=== PATIENT | male | born 1975 | race Caucasian/White ===

== ENCOUNTER 2018-05-05 15:21 | Outpatient (CLI) | payer OTHER, SELFPAY ==
--- NOTE | 2018-05-05 15:12 | DI.RAD_ITS ---
SYMPTOMS/DIAGNOSIS: SHOULDER PAIN RIGHT SHOULDER: Three views. No acute fracture or dislocation is seen. The glenohumeral joint appears well maintained. No suspicious lytic or sclerotic lesions are seen. The soft tissues are unremarkable. IMPRESSION: No acute abnormality.
== END 2018-05-05 15:41 ==
PROVIDERS: PCP Nurse Practitioner Family; Visit Provider Physician Assistant Surgical
DX: M25.511 Pain in right shoulder (principal)
CPT/HCPCS: 73030

== ENCOUNTER 2018-09-09 00:44 | Outpatient (CLI) | payer OTHER, SELFPAY ==
--- NOTE | 2018-09-09 14:44 | DI.MRI_ITS ---
SYMPTOM/DIAGNOSIS: RT SHOULDER PAIN, RT ROTATOR CUFF TENDONITIS, M75.81, M25.511 RIGHT SHOULDER MRI: MRI examination of the shoulder was performed according to the usual protocol. There is an apparent small humeral head cyst. No other significant bony signal abnormality is seen involving the humeral head or glenoid. There are signal changes in acromion and clavicle adjacent to the acromioclavicular joint and there are associated hypertrophic changes at the AC joint with a small quantity of fluid present in the joint. There is mild impingement on the superior aspect of the supraspinatus myotendinous junction. No rotator cuff tear is seen. No gross labral tear identified by noncontrast criteria. The biceps tendon and anchor appear intact. CONCLUSION: Hypertrophic degenerative changes of the AC joint with mild supraspinatus myotendinous junction impingement. No rotator cuff tear or significant tendinosis identified.
== END 2018-09-09 01:04 ==
PROVIDERS: PCP Nurse Practitioner Family; Visit Provider Student in an Organized Health Care Education/Training Program
DX: M25.511 Pain in right shoulder (principal); M75.81 Other shoulder lesions, right shoulder; M19.011 Primary osteoarthritis, right shoulder
CPT/HCPCS: 73221

== ENCOUNTER 2018-10-03 07:59 | Outpatient (CLI) | payer OTHER, SELFPAY ==
--- NOTE | 2018-10-03 17:07 | W.PREOPHP ---
Documented by User: CHRIS Espitia 10/03/18 17:17 Date of service: 10/03/18 Assessment and Plan (1) Right rotator cuff tendonitis: Current visit: No Status: Chronic Right shoulder arthroscopy. Details of surgery were discussed with patient as well as risks and pertinent anatomy. All questions were answered. (2) Arthralgia of right acromioclavicular joint: Current visit: No Status: Chronic Distal clavicle excision. Details of surgery were discussed with patient as well as risks and pertinent anatomy. All questions were answered. History of Present Illness Chief Complaint: Right shoulder pain Narrative: Catrachito is a 43-year-old male who comes in today for preop visit for his right shoulder. He has been dealing with right shoulder pain for multiple years now, but over the last few months it has gotten significantly worse. He states that whenever he tries to do any lifting especially up over his head he gets significant pain on the top of the shoulder. He also has trouble sleeping on his right side because of his right shoulder pain. He was previously injected in the AC joint of his right shoulder, and this gave him significant relief of his shoulder pain, but not absolute relief from his pain. This ultimately led to him getting an MRI which revealed no significant rotator cuff damage or tearing. Because he continues to have pain after this injection, he would like to move forward with a distal clavicle excision and right shoulder arthroscopy. The reason for the arthroscopy is because he did not have absolute relief from the shoulder pain with the AC injection. Hopefully this will just be a debridement and decompression of the shoulder, and we will not find any other pathology in his right shoulder. Pertinent Surgical Information Patient denies history of hypertension, CVA, [place], angina, asthma, COPD, renal or liver disorders, hepatitis, bleeding disorders, diabetes, immune or thyroid disorders. Catrachito states that he usually wakes up from anesthesia with some postop nausea and vomiting. Review of Systems Constitutional Denies fever(s) ENT Denies dizziness and Denies sore throat Cardiovascular Denies chest pain, Denies palpitations and Denies dyspnea Respiratory Denies cough and Denies dyspnea Gastrointestinal Denies abdominal pain, Denies melena, Denies hematochezia, Denies diarrhea, Denies nausea and Denies vomiting Genitourinary Denies hematuria and Denies dysuria Neurologic Denies dizziness Endocrine Denies palpitations [facility] Medical History Migraine (Chronic) Surgical History Fracture of tibia, left, closed (Chronic) H/O arthroscopy of left knee (Chronic) Status post excision of lipoma (Chronic) Social History Smoking and Tabacco status: Former Tobacco Use Meds Home Medications Medication Instructions Recorded Confirmed Type amitriptyline 50 mg PO HS tab-cap 07/21/14 10/03/18 History rizatriptan [Maxalt] 10 mg PO PRN 07/21/14 10/03/18 History Aristocort TOPICAL BID 05/31/15 09/03/18 History ibuprofen 600 mg PO Q6H PRN #20 tab 01/12/18 10/03/18 Rx Allergies Allergy/AdvReac Type Severity Reaction Status Date / Time morphine Allergy Severe difficulty Unverified 10/03/18 08:13 breathing, red streaks, itching Exam HENSC Head: normocephalic and atraumatic General nose exam: no nasal discharge Throat: uvula midline and no uvular edema Other: soft palate rises symmetrically, no erythema Eyes Conjunctivae: conjunctivae normal Sclera: sclerae normal Pupils: PERRL Resp Effort & Inspection: normal respiratory effort Auscultation: clear to auscultation bilaterally and no wheezes Cardio Rate: regular rate Rhythm: regular rhythm Heart Sounds: S1 normal, S2 normal and no murmurs Documented by User: Michael Lutz MD 10/05/18 19:09 [facility] Medical History Migraine (Chronic) Surgical History Fracture of tibia, left, closed (Chronic) H/O arthroscopy of left knee (Chronic) Status post excision of lipoma (Chronic) Social History Smoking and Tabacco status: Former Tobacco Use Meds Home Medications Medication Instructions Recorded Confirmed Type amitriptyline 50 mg PO HS tab-cap 07/21/14 10/03/18 History rizatriptan [Maxalt] 10 mg PO PRN 07/21/14 10/03/18 History Aristocort TOPICAL BID 05/31/15 09/03/18 History ibuprofen 600 mg PO Q6H PRN #20 tab 01/12/18 10/03/18 Rx Allergies Allergy/AdvReac Type Severity Reaction Status Date / Time morphine Allergy Severe difficulty Unverified 10/03/18 08:13 breathing, red streaks, itching
--- NOTE | 2018-10-03 17:17 | HPE_ITS ---
Documented by User: CHRIS Espitia 10/03/18 17:17 Date of service: 10/03/18 Assessment and Plan (1) Right rotator cuff tendonitis: Current visit: No Status: Chronic Right shoulder arthroscopy. Details of surgery were discussed with patient as well as risks and pertinent anatomy. All questions were answered. (2) Arthralgia of right acromioclavicular joint: Current visit: No Status: Chronic Distal clavicle excision. Details of surgery were discussed with patient as well as risks and pertinent anatomy. All questions were answered. History of Present Illness Chief Complaint: Right shoulder pain Narrative: Catrachito is a 43-year-old male who comes in today for preop visit for his right shoulder. He has been dealing with right shoulder pain for multiple years now, but over the last few months it has gotten significantly worse. He states that whenever he tries to do any lifting especially up over his head he gets significant pain on the top of the shoulder. He also has trouble sleeping on his right side because of his right shoulder pain. He was previously injected in the AC joint of his right shoulder, and this gave him significant relief of his shoulder pain, but not absolute relief from his pain. This ultimately led to him getting an MRI which revealed no significant rotator cuff damage or tearing. Because he continues to have pain after this injection, he would like to move forward with a distal clavicle excision and right shoulder arthroscopy. The reason for the arthroscopy is because he did not have absolute relief from the shoulder pain with the AC injection. Hopefully this will just be a debridement and decompression of the shoulder, and we will not find any other pathology in his right shoulder. Pertinent Surgical Information Patient denies history of hypertension, CVA, [place], angina, asthma, COPD, renal or liver disorders, hepatitis, bleeding disorders, diabetes, immune or thyroid disorders. Catrachito states that he usually wakes up from anesthesia with some postop nausea and vomiting. Review of Systems Constitutional Denies fever(s) ENT Denies dizziness and Denies sore throat Cardiovascular Denies chest pain, Denies palpitations and Denies dyspnea Respiratory Denies cough and Denies dyspnea Gastrointestinal Denies abdominal pain, Denies melena, Denies hematochezia, Denies diarrhea, Denies nausea and Denies vomiting Genitourinary Denies hematuria and Denies dysuria Neurologic Denies dizziness Endocrine Denies palpitations [facility] Medical History Migraine (Chronic) Surgical History Fracture of tibia, left, closed (Chronic) H/O arthroscopy of left knee (Chronic) Status post excision of lipoma (Chronic) Social History Smoking and Tabacco status: Former Tobacco Use Meds Home Medications Medication Instructions Recorded Confirmed Type amitriptyline 50 mg PO HS tab-cap 07/21/14 10/03/18 History rizatriptan [Maxalt] 10 mg PO PRN 07/21/14 10/03/18 History Aristocort TOPICAL BID 05/31/15 09/03/18 History ibuprofen 600 mg PO Q6H PRN #20 tab 01/12/18 10/03/18 Rx Allergies Allergy/AdvReac Type Severity Reaction Status Date / Time morphine Allergy Severe difficulty Unverified 10/03/18 08:13 breathing, red streaks, itching Exam HENIN Head: normocephalic and atraumatic General nose exam: no nasal discharge Throat: uvula midline and no uvular edema Other: soft palate rises symmetrically, no erythema Eyes Conjunctivae: conjunctivae normal Sclera: sclerae normal Pupils: PERRL Resp Effort & Inspection: normal respiratory effort Auscultation: clear to auscultation bilaterally and no wheezes Cardio Rate: regular rate Rhythm: regular rhythm Heart Sounds: S1 normal, S2 normal and no murmurs Documented by User: Michael Lutz MD 10/05/18 19:09 [facility] Medical History Migraine (Chronic) Surgical History Fracture of tibia, left, closed (Chronic) H/O arthroscopy of left knee (Chronic) Status post excision of lipoma (Chronic) Social History Smoking and Tabacco status: Former Tobacco Use Meds Home Medications Medication Instructions Recorded Confirmed Type amitriptyline 50 mg PO HS tab-cap 07/21/14 10/03/18 History rizatriptan [Maxalt] 10 mg PO PRN 07/21/14 10/03/18 History Aristocort TOPICAL BID 05/31/15 09/03/18 History ibuprofen 600 mg PO Q6H PRN #20 tab 01/12/18 10/03/18 Rx Allergies Allergy/AdvReac Type Severity Reaction Status Date / Time morphine Allergy Severe difficulty Unverified 10/03/18 08:13 breathing, red streaks, itching
== END 2018-10-03 08:19 ==
PROVIDERS: PCP Nurse Practitioner Family; Visit Provider Student in an Organized Health Care Education/Training Program
DX: M25.511 Pain in right shoulder (principal); M19.011 Primary osteoarthritis, right shoulder; M75.101 Unspecified rotator cuff tear or rupture of right shoulder, not specified as traumatic; Z01.818 Encounter for other preprocedural examination
CPT/HCPCS: NC

== ENCOUNTER 2018-10-07 11:11 | Day surgery (SDC) | payer OTHER, SELFPAY ==
[2018-10-03 08:14] VITALS: BP 145/87; PULSE 94; RESP 18; TEMP 37; O2SAT 98
[2018-10-07] VITALS (7 sets, daily range): BP systolic 79–138; BP diastolic 38–97; PULSE 64–84; RESP 16–24; TEMP 35.2–36.8; O2SAT 95–99
[2018-10-07] MEDS: Lactated Ringers 1,000 ML 80 ML IV ×2 (12:24→16:57)
[2018-10-07] MEDS: Bupivacaine 0.5% Pres-Free 30 ML VIAL (15:20)
[2018-10-07] MEDS: Bupivacaine LIPOSOME/PF 133 MG/10 ML VIAL IJ (15:20)
--- NOTE | 2018-10-07 17:01 | PDOC.DSDIS_ITS ---
Discharge Plan Disposition Patient Disposition: HOME Condition: Good Discharge Details Reason For Visit: R AC Arthritis Attending Provider: Michael Lutz Primary Care Provider: Elva Hill Home Meds and New Rx's Prescriptions: New acetaminophen 500 mg tablet 1,000 mg PO Q8H PRN (Reason: pain) Qty: 90 RF: 3 oxycodone 5 mg tablet 5 mg PO Q4H Qty: 15 RF: 0 Continued rizatriptan [Maxalt] 10 MG tablet 10 mg PO PRN RF: 0 amitriptyline 50 MG tablet 50 mg PO HS RF: 0 ibuprofen 600 MG tablet 600 mg PO Q6H PRN (Reason: Pain) Qty: 90 RF: 3 Discontinued Aristocort cream Topical BID RF: 0 No Action Excedrin Extra Strength 250-250-65 mg Tablet 2 tab PO Q6H PRNRF: 0 Discharge Instructions Stand Alone Forms: Nelda Shoulder Arthro Referrals: Michael Lutz MD [ [facility] STAFF PHYSICIAN] - Equipment/Supplies: Sling Activity:: Activity as Tolerated Remove Dressings/Wound Care:: 72 hours Shower/Bathe:: 72 hours Diet:: As Tolerated Discharge Orders Discharge Orders: Discharge Order (Routine); Ordered 10/07/18 Ordered By: Michael Lutz DS: Diagnosis Discharge Diagnosis (1) Arthralgia of right acromioclavicular joint: Status: Chronic (2) Right rotator cuff tendonitis: Status: Chronic
[2018-10-07] MEDS: fentaNYL 100 MCG/2 ML VIAL IVP ×2 (17:35→17:40)
[2018-10-07] MEDS: oxyCODONE 5 MG TAB PO (18:15)
--- NOTE | 2018-10-07 21:54 | W.PM.OP ---
Date of service: 10/07/18 Time of Service: 16:54 Operative Note DATE OF PROCEDURE: 10/07/18 PRE-OP DIAGNOSIS: Right AC arthritis, right subacromial impingement POST-OP DIAGNOSIS: same PROCEDURE: - Mini-Open Distal Clavicle Excision - Subacromial Debridement with Acromioplasty SURGEON: Michael Lutz COMMERCIAL LOAN COORDINATOR: Ash Frye ANESTHESIA: GETA and regional ESTIMATED BLOOD LOSS: 0 PATHOLOGY: none sent COMPLICATIONS: None Patient was transported to: PACU Patient's condition: stable Indications: I have seen Catrachito in clinic for a painful shoulder. Pathology was confirmed based on x-ray, MRI, and exam findings. Nonoperative measures were exhausted but disability and pain persisted. I discussed shoulder arthroscopy and procedures. I reviewed the risks of the procedures to include, but not limited to, bleeding, infection, pain, stiffness, damage to nerves or vessels, recurrence, hardware failure, blood clot. Despite these risks, the patient elected to proceed. Findings: There were signs of arthrosis of the distal clavicle; a 1cm wedge was resected A diagnostic arthroscopy was performed with the following findings: - Glenohumeral Joint: No significant arthritic changes is - Labrum: A very mild amount of inflammation but no tearing - Cuff: No articular nor bursal sided tear - Biceps: Biceps tendon without tearing and anchor intact - Subacromial: Some thickened bursa with a downward sloping anterolateral spur Procedure Description: Bernabe was greeted in the preoperative holding area where the correct side was identified and marked. The consent was reviewed with the patient and signed. The history and physical was updated. All questions were answered. Catrachito was taken back to the PACU for administration of an intrascalene nerve block. He was then taken to the operating room. The patient was placed into the supine position on the operating room table. A general anesthetic was administered. He was then positioned in the beach chair position. All bony prominences were well padded. The head was placed in a foam head still operator in a neutral position. Prophylactic antibiotics in the form of cefazolin were administered. The right arm/shoulder was then prepped with Chloraprep and draped in a standard fashion with stockinette and shoulder drape. A timeout to confirm correct identity, side and site, procedure, allergies, anesthesia, and medical concerns was performed. The arm was placed into a pneumatic velasquez, [id number]. The distal clavicle excision was started first. An approximate 2-1/2 cm incision was made overlying the AC joint. The skin was incised sharply. The deeper tissues were dissected with electrocautery to expose the clavipectoral fascia. The clavipectoral fascia was incised longitudinally along the distal clavicle and onto the acromion. The fascia was elevated in subperiosteal fashion. The end of the clavicle was exposed. This showed significant irregularity of the distal clavicle. Using a small oscillating saw, a 1 cm resection of the distal clavicle was performed. This was removed. The wound was inspected for any bony fragments remaining. A rasp was used to smooth the edges, especially posteriorly. The wound was then thoroughly irrigated. A small amount of bone wax was placed at the end of the clavicle. The clavipectoral fascia was reapproximated with 0 Vicryl. The deep tissues and dermal layer was closed with a 2-0 Vicryl. The shoulder arthroscopy was then performed. The glenohumeral joint was injected with 20 cc of normal saline with good flow back. A standard posterior portal was made and the joint was entered atraumatically with a blunt arthroscope. Once inside we had good visualization of the structures of the glenohumeral joint. An anterior portal was established with spinal needle localization. A 6.5 mm cannula was inserted. A probe was then used to perform a diagnostic arthroscopy. There is noted to be no significant cartilage damage of the glenoid humeral joint. The labrum was intact anteriorly and posteriorly. There were no loose bodies in the inferior pouch. The superior rotator cuff was attached to the tuberosity. The biceps tendon was without tearing. The subscapularis was intact. The arthroscope was then inserted into the subacromial space. The 6.5 mm cannula was placed lateral to the CA ligament. Given that there was no significant tearing of the rotator cuff I went ahead and release the CA ligament off the anterolateral corner of the acromion. A complete bursectomy is performed anteriorly, posteriorly, and laterally with electrocautery and shaver. This had excellent exposure of the rotator cuff. The bursal side rotator cuff was without any significant tearing that was appreciated. There was a large anterolateral spur. Using a spinal needle a lateral portal was established. This became the viewing portal. A 5.0 mm philip was then inserted from the posterior portal. The anterolateral corner of the acromion was then resected in plane with the posterior slope of the acromion. The scope equipment was removed from the shoulder. Excess fluid was evacuated. The portal sites were closed with 3-0 Monocryl. The wounds were dressed with Steri-Strips, 4 x 4's, ABDs, Medipore tape. A sling was applied. The patient tolerated the procedure well and was returned to the Same Day Surgery area in a stable condition suffering no known complication.
== END 2018-10-07 19:14 | disposition home or self-care (01) ==
PROVIDERS: PCP Nurse Practitioner Family; Visit Provider Student in an Organized Health Care Education/Training Program
PROC: (CPT 29805; principal; 2018-10-07 13:30)
PROC: (CPT 23120; 2018-10-07 13:30)
DX: M19.011 Primary osteoarthritis, right shoulder (principal); M75.41 Impingement syndrome of right shoulder
CPT/HCPCS: 29823; 23120; 76942; J0690; J1100; J1885; J2250; J2405; J3010; L3650

== ENCOUNTER 2019-02-20 12:12 | Emergency (ER) | payer OTHER, SELFPAY ==
[2019-02-20 12:17] VITALS: BP 147/96; PULSE 98; RESP 18; TEMP 36.7; O2SAT 101
[2019-02-20 12:32] LABS: Bilirubin Negative (Negative); Blood Trace-intact (Negative); Clarity Clear (Clear); Glucose Negative (Negative); Ketones Negative (Negative); Leukocyte Esterase Negative (Negative); Nitrite Negative (Negative); Specific Gravity >= 1.030 (1.005-1.025); Urobilinogen 0.2 EU/dL (Up TO 0.2)
--- NOTE | 2019-02-20 12:41 | DI.CT_ITS ---
SYMPTOMS/DIAGNOSIS: LEFT FLANK PAIN TO GROIN RENAL COLIC CT: Routine examination was performed. There is a 3 mm stone seen in the left urinary bladder. It may lie within the wall in the region of the ureterovesical junction or within the bladder lumen. There is mild dilatation of the left renal collecting system. There are bilateral nonobstructing stones in the kidneys. No evidence of obstruction of the right kidney. The unenhanced visualized portions of the liver, spleen, pancreas, gallbladder, bile ducts and adrenal glands are unremarkable. The aorta is of normal caliber. The bowel shows no evidence of obstruction or inflammation. There is colonic diverticulosis present, but no evidence of diverticulitis. There is a normal appendix present. Mild degenerative changes are seen in the spine. IMPRESSION: 1. A 3 mm calculus in the left urinary bladder. It appears to lie within the wall at the level of the left ureterovesical junction. There is mild hydronephrosis present. 2. Bilateral nephrolithiasis. The findings were discussed with Dr. Ahumada of the Emergency Department on the date of the examination.
[2019-02-20 12:43] LABS: Epithelial Cells Few HPF (Negative); RBC 0-2 (0-2); WBC 0-2 HPF (0-5)
[2019-02-20 12:44] LABS: Bacteria Few HPF (Negative); C & S Indicated? No; Casts Negative LPF (Negative); Crystals Negative HPF (Negative); Mucus Moderate (Negative)
[2019-02-20] MEDS: Ketorolac 30 MG/ML VIAL IVP (12:48)
--- NOTE | 2019-02-20 12:49 | NUR.NOTE ---
pt medicated as per mdo Nursing Note:
--- NOTE | 2019-02-20 13:13 | ED.GENADUL_ITS ---
Discharge Plan Disposition Patient Disposition: HOME Discharge Details Chief Complaint: FlankPain Clinical Impression: Renal colic on left side Primary Care Provider: Elva Hill ED Provider: Moi Ahumada Home Meds and New Rx's Prescriptions: New tamsulosin [Flomax] 0.4 mg capsule 0.4 mg PO DAILY Qty: 7 RF: 0 Continued rizatriptan [Maxalt] 10 MG tablet 10 mg PO PRN RF: 0 amitriptyline 50 MG tablet 50 mg PO HS RF: 0 Excedrin Extra Strength 250-250-65 mg Tablet 2 tab PO Q6H PRNRF: 0 acetaminophen 500 mg tablet 1,000 mg PO Q8H PRN (Reason: pain) Qty: 90 RF: 3 ibuprofen 600 MG tablet 600 mg PO Q6H PRN (Reason: Pain) Qty: 90 RF: 3 Discharge Instructions Instructions: Renal Colic (ED) Additional Instructions: Please drink plenty of fluid. Please contact your primary care physician to arrange follow-up. Return to the ER for any worsening or new concerning symptoms. Referrals: Elva Hill [Primary Care Provider] - Discharge Data Discharge Date/Time-TO BE ENTERED AT DEPARTURE: 02/20/19 13:50 Medical Decision Making 43-year-old male with history of renal stones here with left flank pain that started this morning. Patient is quite uncomfortable. Tachycardic. Toradol 30 mg IV for pain. Zofran 4 mg IV for nausea. We will give IV fluid. Urinalysis reviewed and trace blood. 0-[address] of the abdomen and pelvis interpreted by radiology: 3 mm ureteral calculus at UVJ with mild hydronephrosis. Plan for outpatient follow-up. Disposition decision was made weighing the risks and benefits of hospitalization versus outpatient treatment, the risk for further decompensation, and the patient's wishes. The patient was stable and requested discharge. Prior to discharge, my usual and customary return precautions were reviewed with the patient - this included follow-up instructions and reason to return to the emergency department if condition worsens, does not improve as expected, or other new concerns arise. HPI General Mode of arrival: ambulatory . Date/Time Provider Initiated Documentation: 02/20/19 12:41 . Limitations to Documentation: no limitations . Information obtained by: patient . HPI Narrative: 43-year-old male presents with chief complaint of left flank pain. Patient notes the pain started in his left posterior flank this morning around 7 AM. Pain is migrated to now more anterior and lower left flank and groin. Pain radiates to his left testicle. He has no associated abdominal pain. He does have associated nausea. Pain is severe and rated 10/10. Pain is described as sharp. Patient does have a history of renal stones and current pain does not feel the same as prior stones. Last stone was passed remotely. He has no associated fever, dysuria, or hematuria. Related Data Home Medications Medication Instructions Recorded Confirmed amitriptyline 50 mg PO HS tab-cap 07/21/14 02/20/19 rizatriptan [Maxalt] 10 mg PO PRN 07/21/14 02/20/19 Excedrin Extra Strength 2 tab PO Q6H PRN 10/07/18 02/20/19 acetaminophen 1,000 mg PO Q8H PRN #90 tab 10/07/18 02/20/19 ibuprofen 600 mg PO Q6H PRN #90 tab 10/07/18 02/20/19 tamsulosin [Flomax] 0.4 mg PO DAILY #7 cap 02/20/19 Previous Rx's Medication Instructions Recorded acetaminophen 1,000 mg PO Q8H PRN #90 tab 10/07/18 ibuprofen 600 mg PO Q6H PRN #90 tab 10/07/18 tamsulosin [Flomax] 0.4 mg PO DAILY #7 cap 02/20/19 Allergies Allergy/AdvReac Type Severity Reaction Status Date / Time morphine Allergy Severe difficulty Unverified 02/20/19 12:18 breathing, red streaks, itching General Stated Complaint: FlankPain MELISSA: 3 Review of Systems Review of Systems All systems reviewed & are unremarkable except as noted in HPI and below Constitutional Denies fever(s) Genitourinary Reports as per HPI PFSH Medical History Migraine (Chronic) Surgical History Fracture of tibia, left, closed (Chronic) H/O arthroscopy of left knee (Chronic) Status post excision of lipoma (Chronic) Social History Smoking/Tobacco Use Status: Former Tobacco Use Drug use: Never Do you feel safe at home: Yes Do you feel safe in your relationship?: Yes Exam Const General: cooperative and no acute distress HENMT Mouth: moist mucous membranes Eyes Conjunctivae: normal conjunctivae Sclera: normal sclerae Neck Neck: trachea midline and supple Resp Auscultation: clear to auscultation bilaterally, no rales, no rhonchi and no wheezes Cardio Jugular venous pressure: no JVD Rate: regular rate and not tachycardic Rhythm: regular rhythm GI Palpation: soft, not firm, no guarding, no masses, not rigid and nontender Male General Exam: No hernia Penis: normal penis Scrotum: scrotum normal Testes: normal Back/Spine/Pelvis Back: CVA tenderness (left) Skin General skin exam: no rashes or lesions noted Neuro General: alert, awake and tone normal Extrem General: no calf tenderness bilaterally and no edema Psych Appearance: grossly normal Mental Status: mental status grossly normal Speech and Movement: speech and movement normal Course Vital Signs Temperature 36.7 C 02/20/19 12:17 Pulse 98 H 02/20/19 12:17 Respiratory Rate 18 02/20/19 12:17 Blood Pressure 147/96 H 02/20/19 12:17 Pulse Oximetry 101 H 02/20/19 12:17 Temperature 36.7 C 02/20/19 12:17 Pulse 98 H 02/20/19 12:17 Respiratory Rate 18 02/20/19 12:17 Respiratory Effort 02/20/19 12:20 Blood Pressure 147/96 H 02/20/19 12:17 Blood Pressure Position Supine 02/20/19 12:17 Pulse Oximetry 101 H 02/20/19 12:17 Oxygen Delivery Method Room Air 02/20/19 12:17 Oxygen Flow Rate 0 02/20/19 12:17 Pain Level 10 02/20/19 12:17 Lab/Test Results Lab/Test Results: Laboratory Tests Range/Units 02/20/19 12:25 Urine Color (Yellow) Yellow Urine Clarity (Clear) Clear Urine pH (5-8) 6.0 Ur Specific Allen (1.005-1.025) >= 1.030 H Urine Protein (Negative) mg/dL Negative Urine Ketones (Negative) mg/dL Negative Urine Blood (Negative) Trace-intact H Urine Nitrite (Negative) Negative Urine Bilirubin (Negative) Negative Urine Urobilinogen (Up TO 0.2) EU/dL 0.2 Ur Leukocyte Esterase (Negative) Negative Urine RBC (0-2) 0-2 Urine WBC (0-5) HPF 0-2 Ur Epithelial Cells (Negative) HPF Few Urine Crystals (Negative) HPF Negative Urine Bacteria (Negative) HPF Few Urine Casts (Negative) LPF Negative Urine Mucus (Negative) Moderate Ur Culture Indicated? No Urine Glucose (Negative) mg/dL Negative
[2019-02-20] MEDS: Tamsulosin 0.4 MG CAPCR PO (13:31)
[2019-02-20] MEDS: Ondansetron 4 MG/2 ML VIAL IVP (13:31)
--- NOTE | 2019-02-20 13:36 | NUR.NOTE ---
pt medicated as per mdo tolorating po intake provided with bedside urinal and strainer Nursing Note:
[2019-02-20 13:49] VITALS: BP 134/78; PULSE 87; RESP 18; TEMP 36.8; O2SAT 98
== END 2019-02-20 13:50 | disposition home or self-care (01) ==
PROVIDERS: Emergency Provider Student in an Organized Health Care Education/Training Program; PCP Nurse Practitioner Family
DX: N13.0 Hydronephrosis with ureteropelvic junction obstruction (principal); N23 Unspecified renal colic; R00.0 Tachycardia, unspecified; R31.9 Hematuria, unspecified; Z87.440 Personal history of urinary (tract) infections
CPT/HCPCS: 36415; 99284; 74176; 81003; 81015; J1885; J2405

== ENCOUNTER 2020-07-14 21:37 | Outpatient (REF) | payer OTHER, SELFPAY ==
[2020-07-14 21:46] LABS: Calculated LDL 189 mg/dL (<100); Cholesterol 260 mg/dL (<200); HDL Cholesterol 46 mg/dL (40-60); Triglyceride 127 mg/dL (<150)
[2020-07-18 09:53] LABS: HIV-1/2 Ag & Ab Screen Negative (Negative)
[2020-07-18 10:04] LABS: Hepatitis C Ab w Rflx HCV PCR Negative (Negative)
== END 2020-07-14 21:57 ==
LOC: NCHCN 21:37
PROVIDERS: PCP Nurse Practitioner Family; Visit Provider Nurse Practitioner Family
DX: Z00.00 Encounter for general adult medical examination without abnormal findings (principal); K30 Functional dyspepsia; N23 Unspecified renal colic; G47.62 Sleep related leg cramps; Z13.220 Encounter for screening for lipoid disorders; Z11.4 Encounter for screening for human immunodeficiency virus [HIV]; Z11.59 Encounter for screening for other viral diseases
CPT/HCPCS: 80061; 86803; 87389

== ENCOUNTER 2021-03-10 03:48 | Outpatient (CLI) | payer OTHER, SELFPAY ==
--- NOTE | 2021-03-10 08:00 | DI.MRI_ITS ---
Exam(s) MR LOWER JOINT LT WO EXAM: MR LOWER JOINT LT WO CLINICAL HISTORY: PAIN,ACHILLES TENONOSIS,TENDINITIS,M76.62,M67.88 TECHNIQUE: Multiplanar multisequence MRI was performed without intravenous contrast. COMPARISON: CR LEFT FEMUR from 03/26/2011 CR LEFT TIB/FIB from 03/26/2011 CR LEFT FEMUR from 03/26/2011 CR LEFT TIB/FIB from 03/26/2011 FINDINGS: BONES/JOINTS: No fracture or contusion pattern. No bone lesions identified. The talar dome is smooth. The ankle mortise is maintained. No joint effusion is present. There is metallic artifact in the dis audelia tibia from the patient's intramedullary jackie. LIGAMENTS: The tibiofibular and calcaneofibular ligaments are intact. The talofibular ligaments are i ntact. The deltoid ligament is intact. The syndesmosis is unremarkable. Sinus tarsi is normal. MUSCULOTENDINOUS STRUCTURES: Achilles tendon: There is fusiform thickening of the Achilles tendon centered 7 cm above its attachme nt onto the calcaneus. There is hyperintense signal seen on the T2 weighted images in this area. Plantar fascia: Unremarkable. Anterior Extensor tendons: Unremarkable. Posterior Tibialis: Unremarkable. Flexor Digitorum longus: Unremarkable. Flexor Hallucis longus: Unremarkable. Peroneus longus: Unremarkable. Peroneus brevis:Unremarkable. SOFT TISSUES: Unremarkable. OTHER FINDINGS: None. IMPRESSION: Partial tear of the Achilles tendon. DATA REPOSITORY:
== END 2021-03-10 04:08 ==
PROVIDERS: PCP Nurse Practitioner Family; Visit Provider Student in an Organized Health Care Education/Training Program
DX: M67.88 Other specified disorders of synovium and tendon, other site (principal); M76.62 Achilles tendinitis, left leg; S86.012A Strain of left Achilles tendon, initial encounter; X58.XXXA Exposure to other specified factors, initial encounter
CPT/HCPCS: 73721

== ENCOUNTER 2022-07-18 09:30 | Outpatient (REF) | payer OTHER, SELFPAY ==
[2022-07-18 14:45] LABS: Calculated LDL 187 mg/dL (<100); Cholesterol 255 mg/dL (<200); HDL Cholesterol 51 mg/dL (40-60); Triglyceride 88 mg/dL (<150)
== END 2022-07-18 09:31 | disposition home or self-care (01) ==
LOC: NCHCN 09:30
PROVIDERS: PCP Nurse Practitioner Family; Visit Provider Nurse Practitioner Family
DX: R03.0 Elevated blood-pressure reading, without diagnosis of hypertension (principal); E78.5 Hyperlipidemia, unspecified; Z00.00 Encounter for general adult medical examination without abnormal findings
CPT/HCPCS: 80061

== ENCOUNTER 2023-08-13 17:05 | Outpatient (REF) | payer OTHER, SELFPAY ==
[2023-08-13 22:00] LABS: ALT 36 U/L (16-63); AST 27 U/L (15-37); Alkaline Phosphatase 68 U/L (46-116); Anion Gap 5.5 mmol/L (3-11); BUN 21 mg/dL (7-18); Bilirubin, Total 0.4 mg/dL (0.2-1.0); CO2 30.5 mmol/L (21.0-32.0); CREATININE 0.8 mg/dL (0.70-1.30); Calcium 9.3 mg/dL (8.5-10.1); Calculated LDL 129 mg/dL (<100); Chloride 103 mmol/L (98-107); Cholesterol 213 mg/dL (<200); Estimated GFR 109.17 (mL/min/1.73m2); Glucose 84 mg/dL (74-106); HDL Cholesterol 42 mg/dL (40-60); Potassium 5.4 mmol/L (3.5-5.1); Sodium 139 mmol/L (136-145); Total Protein 7.5 g/dL (6.4-8.2); Triglyceride 213 mg/dL (<150)
== END 2023-08-13 17:06 | disposition home or self-care (01) ==
LOC: NCHCN 17:05
PROVIDERS: PCP Nurse Practitioner Family; Visit Provider Nurse Practitioner Family
DX: E78.5 Hyperlipidemia, unspecified (principal)
CPT/HCPCS: 80053; 80061

== ENCOUNTER 2023-08-27 15:28 | Outpatient (REF) | payer OTHER, SELFPAY ==
[2023-08-27 21:36] LABS: Anion Gap 2.1 mmol/L (3-11); BUN 19 mg/dL (7-18); CO2 31.9 mmol/L (21.0-32.0); Calcium 9.2 mg/dL (8.5-10.1); Chloride 106 mmol/L (98-107); Estimated GFR 92.84 (mL/min/1.73m2); Glucose 120 mg/dL (74-106); Potassium 4.4 mmol/L (3.5-5.1); Sodium 140 mmol/L (136-145)
== END 2023-08-27 15:29 | disposition home or self-care (01) ==
LOC: NCHCN 15:28
PROVIDERS: PCP Nurse Practitioner Family; Visit Provider Nurse Practitioner Family
DX: E87.5 Hyperkalemia (principal)
CPT/HCPCS: 80048

== ENCOUNTER 2025-07-31 11:36 | Emergency (ER) | payer OTHER, SELFPAY ==
[2025-07-31 11:39] VITALS: BP 167/115; PULSE 83; RESP 15; TEMP 36.4; O2SAT 96
--- NOTE | 2025-07-31 11:45 | DI.RAD_ITS ---
Exam(s) XR LUMBAR SPINE COMPLETE EXAM: XR LUMBAR SPINE COMPLETE CLINICAL HISTORY: Left side pain, left leg pain. TECHNIQUE: 2D digital imaging was performed of the lumbar spine. Five images were obtained. AP, lateral, right oblique, left oblique and L5-S1 spot views were obtained. COMPARISON: CR LUMBAR SPINE COMPLETE from 03/08/2011 FINDINGS: BONES: No fracture or destructive lesion. There are endplate osteophytes seen at L2-L3 and L5-S1. There are degenerative changes of the facets seen at L5-S1. DISKS: There is mild disc space narrowing at L2-L3 and L5-S1. ALIGNMENT: Lumbar spinal alignment is within normal limits. No spondylolysis or spondylolisthesis. SOFT TISSUE: Normal. IMPRESSION: 1. There is no acute fracture or subluxation. 2. Mild degenerative changes seen in the lumbar spine as described above. 3. The preliminary [facility] report was reviewed. DATA REPOSITORY: RADIATION DOSE DELIVERED:
--- NOTE | 2025-07-31 12:01 | W.ED.GENAD ---
Discharge Plan Disposition Patient Disposition: Home Condition: Stable Discharge Details Clinical Impression: Lumbago with sciatica, left side Primary Care Provider: lEva Hill ED Provider: Mylene Rendon Home Meds and New Rx's Prescriptions: New prednisone 50 mg tablet 50 mg PO DAILY 5 Days Qty: 5 0RF Rx Instructions: Take 1 tablet daily for the next 5 days lidocaine 5 % adhesive patch,medicated 1 patch topical DAILY Qty: 15 0RF Rx Instructions: leave on most painful area for up to 12 hrs oxycodone-acetaminophen [Percocet] 5-325 mg tablet 1 tab PO Q8H PRN (Reason: pain) Qty: 7 0RF Rx Instructions: Take 1 tablet by mouth every 8 hours as needed for moderate to severe pain. No driving or operating heavy machinery while on this medication. No Action rizatriptan [Maxalt] 10 MG tablet 10 mg PO PRN amitriptyline 50 MG tablet 50 mg PO HS tamsulosin [Flomax] 0.4 mg capsule 0.4 mg PO DAILY Qty: 7 0RF [id number] [Excedrin Extra Strength] 250-250-65 mg Tablet 2 tab PO Q6H PRN Rx Instructions: pt uses for migraines acetaminophen 500 mg tablet 1,000 mg PO Q8H PRN (Reason: pain) Qty: 90 3RF ibuprofen 600 MG tablet 600 mg PO Q6H PRN (Reason: Pain) Qty: 90 3RF cyclobenzaprine 10 mg tablet 10 mg PO TID PRN Patient Comments: TAKE ONE TABLET BY MOUTH AT BEDTIME NEEDED FOR MUSCLE SPASMS Discharge Instructions Instructions: Sciatica Exercises, Low Back Pain ED, Sciatica ED Additional Instructions: At this time the x-ray showed no acute findings however based on your clinical presentation and symptoms I am concerned for possible herniated or bulging disc. Physical therapy should help with this. Please alternate ice and heat. Please take the prednisone and medications as directed. You may use the lidocaine patch also as prescribed. Follow up with primary care provider in 3-5 days. Return to ED sooner if any worsening loss of bowel or bladder control, numbness or tingling in your groin or rectal area weakness in your leg or concerns. Please take Ibuprofen with food every 4-6 hours as needed for pain and swelling. Stand Alone Forms: Physical Therapy Referral, Portal Information, Work Release Referrals: Elva Hill [Primary Care Provider, Medicine] - 5 days Referral Note: ER follow-up, call for an appointment Clinical Impression: Lumbago with sciatica, left side HPI General Mode of arrival: ambulatory. Date/Time Provider Initiated Documentation: 07/31/25 11:38. Limitations to Documentation: no limitations. Information obtained by: patient, RN notes reviewed and old records reviewed. HPI Narrative: 49-year-old male presents to the ER with a chief complaint of left lower lumbar pain after a lifting type injury while at work approximately 2 weeks ago. He states that he was seen at urgent care after that and had received prednisone and muscle relaxers with little to no relief. He now reports that he has got pain radiating down into his heel and toes with some tingling. Denies any loss of bowel or bladder control no saddle anesthesia. Has been taking Tylenol and ibuprofen. No history of spinal surgeries. Related Data Home Medications ?Medication ?Instructions ?Recorded ?Confirmed amitriptyline 50 mg tablet 50 mg PO HS 07/21/14 07/31/25 rizatriptan 10 mg tablet (Maxalt) 10 mg PO PRN 07/21/14 07/31/25 acetaminophen 500 mg tablet 1,000 mg (2 x 500 mg) PO Q8H PRN 10/07/18 07/31/25 pain #90 tabs [id number]-fivzvhaz 250 2 tab PO Q6H PRN 10/07/18 07/31/25 mg-250 mg-65 mg tablet (Excedrin Extra Strength) ibuprofen 600 mg tablet 600 mg PO Q6H PRN Pain #90 tabs 10/07/18 07/31/25 tamsulosin 0.4 mg capsule (Flomax) 0.4 mg PO DAILY #7 caps 02/20/19 07/31/25 cyclobenzaprine 10 mg tablet 10 mg PO TID PRN 07/31/25 07/31/25 lidocaine 5 % topical patch 1 patch topical DAILY #15 ea 07/31/25 oxycodone-acetaminophen 5 mg-325 1 tab PO Q8H PRN pain #7 tabs 07/31/25 mg tablet (Percocet) prednisone 50 mg tablet 50 mg PO DAILY Inflammation 5 days 07/31/25 #5 tabs Previous Rx's ?Medication ?Instructions ?Recorded acetaminophen 500 mg tablet 1,000 mg (2 x 500 mg) PO Q8H PRN 10/07/18 pain #90 tabs ibuprofen 600 mg tablet 600 mg PO Q6H PRN Pain #90 tabs 10/07/18 tamsulosin 0.4 mg capsule (Flomax) 0.4 mg PO DAILY #7 caps 02/20/19 lidocaine 5 % topical patch 1 patch topical DAILY #15 ea 07/31/25 oxycodone-acetaminophen 5 mg-325 1 tab PO Q8H PRN pain #7 tabs 07/31/25 mg tablet (Percocet) prednisone 50 mg tablet 50 mg PO DAILY Inflammation 5 days 07/31/25 #5 tabs Allergies Allergy/AdvReac Type Severity Reaction Status Date / Time morphine Allergy Severe difficulty Unverified 07/31/25 11:43 breathing, red streaks, itching General Stated Complaint: Nk/Back Pain MELISSA: 4 Review of Systems All systems reviewed & are unremarkable except as noted in HPI and below Musculoskeletal Musculoskeletal: Reports as per HPI, Reports back pain, Reports radiating pain into limb and Reports tingling Neurologic Neurologic: Reports radicular pain, Reports tingling and Reports paresthesias Exam Narrative Exam Narrative: Constitutional: Alert and oriented x3. Appears stated age. Normal body habitus. Head: Normocephalic, no trauma. Eyes: Pupils PERRL, Red reflex noted, EOM's intact. Eyelids symmetrical without lesions, discharge, or swelling. ENT: Bilateral TM's WNL, External ear normal to inspection, no mastoid TTP, swelling, or erythema, Nasal turbinates WNL, no nasal discharge. Normal dentition, Posterior pharynx WNL, no exudate. Chest: RRR, Normal S1, S2, distal pulses intact. Resp: Lungs clear to auscultation bilaterally, no wheezes, rales, or rhonchi. Abdomen: Soft, non-distended, Normoactive bowel sounds all 4 quads. Musculoskeletal: Normal gait, Moves all 4 extremities without difficulty. Skin: No suspicious rashes or lesions. Capillary refill less than 2 sec. Neurologic: Cranial nerves II-XII intact. Alert and oriented x 3. Motor: No deficits noted. Sensory: Intact bilaterally all 4 extremities. Hematologic/Lymphatic: No ecchymosis, no lymphadenopathy. Course Vital Signs Vital signs: Vital Signs Temperature 36.4 C 07/31/25 11:39 Pulse 83 07/31/25 11:39 Respiratory Rate 15 07/31/25 11:39 Blood Pressure 167/115 H 07/31/25 11:39 Pulse Oximetry 96 07/31/25 11:39 Temperature 36.4 C 07/31/25 11:39 Temperature Source Oral 07/31/25 11:39 Pulse 83 07/31/25 11:39 Respiratory Rate 15 07/31/25 11:39 Blood Pressure 167/115 H 07/31/25 11:39 Blood Pressure Position Sitting 07/31/25 11:39 Pulse Oximetry 96 07/31/25 11:39 Oxygen Delivery Method Room Air 07/31/25 11:39 Oxygen Flow Rate 0 07/31/25 11:39 Medical Decision Making 49-year-old male presents to the ER with a chief complaint of left lower lumbar pain after a lifting type injury while at work approximately 2 weeks ago. He states that he was seen at urgent care after that and had received prednisone and muscle relaxers with little to no relief. He now reports that he has got pain radiating down into his heel and toes with some tingling. Denies any loss of bowel or bladder control no saddle anesthesia. Has been taking Tylenol and ibuprofen. No history of spinal surgeries. X-ray L-spine ordered, lidocaine patch Toradol and Norflex. Patient still c/o 8/10 pain after the above measures, will give 60 mg Prednisone and 1 percocet tablet. Awaiting Xray results. Xray results show no acute findings but I suspect bulging or herniated disc based on radiculopathy and symptoms. Will send patient home with Prednisone and a few days of percocet with a PT referral and follow up with PCP. This text was generated using [employer] dictation system, please disregard any oddities of phrase or misspellings. Imaging Data Radiologic Study: Imaging: X-Ray Radiologist's impression: Age: 49 years old Clinical indication: Low back pain; Left side pain, left leg pain TECHNIQUE: Imaging protocol: Radiologic exam of the lumbosacral spine. Views: 4 or 5 views. COMPARISON: CT renal colic wo 02/20/2019 12:53 PM FINDINGS: Bones/joints: No acute fracture. Normal alignment. Disc degenerative changes with mild loss of disc height at L5-S1. Mild facet hypertrophic changes at L5-S1 bilaterally. Soft tissues: Unremarkable. IMPRESSION: No acute findings. Thank you for allowing us to participate in the care of your patient. Dictated and Authenticated by: Anup Gerard DO PFSH All Active Problems (Updated 07/31/25 @ 14:13 by Mylene Rendon NP) Lumbago with sciatica, left side (Acute) Achilles tendonosis of left lower extremity (Acute) Achilles tendinitis of left lower extremity (Acute) Migraine (Chronic) Arthralgia of right acromioclavicular joint (Chronic) Status post distal clavicle excision and right shoulder arthroscopy on 10/07/2018. Surgical History Status post excision of lipoma Excision of lipoma on his back H/O arthroscopy of left knee Scar tissue debridement from previous tibial nailing. Fracture of tibia, left, closed IM nailing Social History Smoking/Tobacco Use Status: Former Tobacco Use Smoking risk assessment performed?: Yes Drug use: Never Substance use type: does not use Do you feel safe at home: Yes Do you feel safe in your relationship?: Yes
[2025-07-31] MEDS: Ketorolac 60 MG/2 ML VIAL IM (12:18)
[2025-07-31] MEDS: Orphenadrine 60 MG/2 ML VIAL IM (12:18)
[2025-07-31] MEDS: Lidocaine 5% Patch 1 PATCH TP (12:19)
[2025-07-31 13:28] VITALS: BP 162/106; PULSE 72; RESP 18; TEMP 37.4; O2SAT 99
[2025-07-31] MEDS: predniSONE 20 MG TAB 60 MG PO (13:39)
[2025-07-31] MEDS: oxyCODONE 5 mg/Acetaminophen 325 mg TAB 1 TAB PO (13:39)
--- NOTE | 2025-07-31 14:11 | DI.[facility]_ITS ---
PROCEDURE INFORMATION: Exam: XR Lumbosacral Spine Exam date and time: 07/31/2025 1:00 PM Age: 49 years old Clinical indication: Low back pain; Left side pain, left leg pain TECHNIQUE: Imaging protocol: Radiologic exam of the lumbosacral spine. Views: 4 or 5 views. COMPARISON: CT renal colic wo 02/20/2019 12:53 PM FINDINGS: Bones/joints: No acute fracture. Normal alignment. Disc degenerative changes with mild loss of disc height at L5-S1. Mild facet hypertrophic changes at L5-S1 bilaterally. Soft tissues: Unremarkable. IMPRESSION: No acute findings. Dictated and Authenticated by: Anup Gerard MD. Orderin Julieta Chakraborty MD
[2025-07-31 14:49] VITALS: BP 160/111; PULSE 78; RESP 18; O2SAT 100
== END 2025-07-31 14:53 | disposition home or self-care (01) ==
PROVIDERS: Emergency Provider Registered Nurse Emergency; PCP Nurse Practitioner Family
DX: M54.42 Lumbago with sciatica, left side (principal)
CPT/HCPCS: 99283; 99284; 96372; J2360; 72110; J1885; J7512